=== PATIENT | male | born 2000 | race Caucasian/White ===

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

== ENCOUNTER 2020-03-18 06:02 | Emergency (ER) | payer SELFPAY ==
[~2020-03-18] VITALS: Ht 170.2 cm; Wt 63.5 kg
[2020-03-18 06:45] LABS: Calcium, Ionized (POC) 1.22 mmol/L (1.10-1.46); Chloride (POC) 106 mmol/L (98-108); Creatinine (POC) 0.7 mg/dL (0.8-1.3); Glucose (ISTAT POC) 99 mg/dL (70-99); Hemoglobin (POC) 13.6 g/dL (13.5-17.5); Potassium (POC) 3.9 mmol/L (3.5-5.5); Sodium (POC) 140 mmol/L (135-148); Total CO2 (POC) 25 mmol/L (21-32)
== END 2020-03-18 07:04 | disposition home or self-care (01) ==
LOC: ER 06:02
PROVIDERS: Emergency Medicine
DX: R11.2 Nausea with vomiting, unspecified (principal); Z88.0 Allergy status to penicillin; Z88.1 Allergy status to other antibiotic agents
CPT/HCPCS: 80047; 85014; 99284

== ENCOUNTER 2023-01-29 16:25 | Emergency (ER) | payer SELFPAY ==
[2023-01-29] MEDS ORDERED: Norco 5-325 Ta1 EACH PO (17:11)
[2023-01-29] MEDS ORDERED: CYCL10 PO (17:11)
[2023-01-29] MEDS ORDERED: Ibuprofen600 MG PO (17:11)
== END 2023-01-29 17:25 | disposition home or self-care (01) ==
LOC: ER 16:25
DX: M54.50 Low back pain, unspecified (principal); F17.210 Nicotine dependence, cigarettes, uncomplicated; Z88.0 Allergy status to penicillin; W11.XXXA Fall on and from ladder, initial encounter
CPT/HCPCS: 72100; 96372; 99283-25; J1885